=== PATIENT | male | born 1995 | race Caucasian/White ===

== ENCOUNTER 2018-03-07 13:46 | Emergency (ER) | payer BC ==
--- NOTE | 2018-03-07 14:27 | CT ---
NONCONTRAST HEAD CT: Date: 03/07/18 HISTORY: Hit head on Sunday while playing football. Persistent headache. COMPARISON: None. TECHNIQUE: A noncontrast head CT is performed from the skull base to the skull vertex. FINDINGS: No parenchymal hemorrhage or extra-axial hematoma. No midline shift. Basilar cisterns are patent. Bra in volume is age-appropriate. Cortical hurd-white matter differentiation is preserved. Ventricles and sulci are patent and symmetric. Calvarium is intact. Adequate aeration of the sinuses and mastoid ai r cells. Mild mucosal thickening of the ethmoid air cells and frontal sinuses. IMPRESSION: No acute intracranial process. POS: [facility]
--- NOTE | 2018-03-07 14:44 | RAD ---
CHEST 2 VIEWS: Date: 03/07/18 HISTORY: Cough. COMPARISON: None. FINDINGS: Normal cardiac silhouette. Pulmonary vessels and hilum are normal. No masses or consolidation. No pne umothorax or osseous abnormalities. IMPRESSION: No acute cardiopulmonary process. POS: [facility]
== END 2018-03-07 14:43 | disposition home or self-care (01) ==
LOC: SCSER 13:46
DX: S09.90XA Unspecified injury of head, initial encounter (principal); F17.210 Nicotine dependence, cigarettes, uncomplicated; W22.8XXA Striking against or struck by other objects, initial encounter; Y93.61 Activity, american tackle football
CPT/HCPCS: 70450; 71046